=== PATIENT | male | born 2000 | race Caucasian/White ===

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

== ENCOUNTER 2022-03-11 10:25 | Emergency (ER) | payer OTHER ==
[~2022-03-11] VITALS: Ht 180.3 cm; Wt 127.2 kg
[2022-03-11 10:50] VITALS: BP 130/77
--- NOTE | 2022-03-11 11:17 | NUR ---
Patient ambulated to bed 8 with steady gait.
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
[2022-03-11] MEDS ORDERED: ACETAMINOPHEN 325 MG TAB PO ONE (12:15)
[2022-03-11] MEDS ORDERED: ONDA-188 PO (13:58)
[2022-03-11] MEDS ORDERED: NAPR-1704 PO (13:58)
[2022-03-11 14:17] VITALS: BP 123/81
--- NOTE | 2022-03-11 14:17 | NUR ---
Patient discharged with v/s stable. Written and verbal after care instructions given. Patient alert, oriented and verbalized understanding of instructions. Ambulatory with steady gait. All questions addressed prior to discharge. ID band removed. Patient advised to follow up with PMD. Rx of NAPROXEN AND ZOFRAN given. Opportunity to ask questions provided and answered.
--- NOTE | 2022-03-11 14:20 | NUR ---
Chart checked and completed. The patient's care was reviewed and supervised by Bertha Orta RN.
== END 2022-03-11 14:17 | disposition home or self-care (01) ==
LOC: MED 10:25
DX: S06.0X0A Concussion without loss of consciousness, initial encounter (principal); W21.02XA Struck by soccer ball, initial encounter; Y93.66 Activity, soccer; Y92.89 Other specified places as the place of occurrence of the external cause; Y99.8 Other external cause status
CPT/HCPCS: 70450; 99284

== ENCOUNTER 2023-12-29 13:33 | Emergency (ER) | payer OTHER ==
[~2023-12-29] VITALS: Ht 180.3 cm; Wt 140.6 kg
[~2023-12-29 13:33] MED LIST: NAPR-1704 PO; ONDA-188 PO
[2023-12-29 14:31] VITALS: BP 131/86; PULSE 72; RESP 18; TEMP 97.7; O2SAT 98
[2023-12-29 14:45] VITALS: O2SAT 98
[2023-12-29] MEDS ORDERED: PRED20TA5 PO (15:37)
[2023-12-29] MEDS ORDERED: ACYC400T14 PO (15:37)
[2023-12-29] MEDS ORDERED: MINE1OIN OP (15:37)
== END 2023-12-29 15:50 | disposition home or self-care (01) ==
LOC: MED 13:33
DX: H92.01 Otalgia, right ear (principal); R20.0 Anesthesia of skin; Z79.899 Other long term (current) drug therapy
CPT/HCPCS: 99283